=== PATIENT | female | born 1960 | race Caucasian/White ===

== ENCOUNTER 2024-07-29 14:30 | Emergency (ER) | payer MEDICAID ==
[~2024-07-29] VITALS: Ht 170.2 cm; Wt 60.0 kg
[2024-07-29 14:41] VITALS: O2SAT 97
[2024-07-29 15:30] LABS: BASOPHILS % 0.4 % (0.0-2.0); EOSINOPHILS % 0.7 % (0.0-5.0); HEMATOCRIT. 42.3 % (36.0-48.0); HEMOGLOBIN. 14.5 g/dL (12.0-16.0); LYMPHOCYTES % 21.2 % (20.0-50.0); MEAN CORPUSCULAR HEMOGLOBIN 32.4 pg (28.0-32.0); MEAN CORPUSCULAR HGB CONC 34.1 g/dL (31.0-37.0); MEAN CORPUSCULAR VOLUME 94.9 fL (81.0-99.0); MEAN PLATELET VOLUME 7.1 fl (7.4-10.4); MONOCYTES % 8.9 % (2.0-8.0); NEUTROPHILS % 68.8 % (40.0-76.0); PLATELET 358 x1000/uL (130-400); RED BLOOD CELL COUNT 4.46 mill/uL (4.2-5.4); RED CELL DISTRIBUTION WIDTH 13.9 % (11.6-14.6)
[2024-07-29] MEDS: KETOROLAC 15MG/ML VIAL IV ONE (15:32)
[2024-07-29] MEDS: SODIUM CHLORIDE 0.9% 1,000 ML IV ONE (15:32)
[2024-07-29 15:36] LABS: CHLORIDE 103 mEq/L (98-107); POTASSIUM 3.6 mEq/L (3.5-5.1); SODIUM 138 mEq/L (136-145)
[2024-07-29 15:37] LABS: CALCIUM 9.8 mg/dL (8.7-10.4); CARBON DIOXIDE 26 mEq/L (21-32)
[2024-07-29 15:42] LABS: CREATININE 0.7 mg/dL (0.6-1.0); ETHANOL BLOOD < 10 mg/dL (<10); GLUCOSE 105 mg/dL (70-105); UREA NITROGEN BLOOD 12 mg/dL (9-23)
[2024-07-29 15:44] LABS: ALANINE AMINOTRANSFERASE 9 IU/L (10-49); ALBUMIN 4.9 g/dL (3.2-4.8); ASPARTATE AMINOTRANSFERASE 15 IU/L (<34); BILIRUBIN DIRECT 0.1 mg/dL (<=3.0); BILIRUBIN TOTAL 0.4 mg/dL (0.1-1.0); PROTEIN TOTAL 7.3 g/dL (6.0-8.3); TROPONIN I HIGH SENSITIVITY < 4 ng/L (3.0-34)
[2024-07-29 15:50] LABS: PROTHROMBIN TIME 10.4 sec (9.6-11.0)
[2024-07-29 17:33] LABS: TROPONIN I HIGH SENSITIVITY 5 ng/L (3.0-34)
[2024-07-29 19:00] VITALS: BP 135/75; PULSE 71; RESP 21; TEMP 36.6; O2SAT 97
== END 2024-07-29 21:22 | disposition home or self-care (01) ==
LOC: ER 14:30
DX: R55 Syncope and collapse (principal); Z98.890 Other specified postprocedural states
CPT/HCPCS: 80076; 80048; 80320; 85025; 85610; 84484; 36415; 71045; 70450; 74176; 93005; 96374; 99285; J1885; J7030; Z7610 ×4; A4606; G0480